=== PATIENT | female | born 1970 | race African-American/Black ===

== ENCOUNTER 2021-07-05 09:39 | Outpatient (REF) | payer OTHER, SELFPAY ==
[2021-07-05 11:24] LABS: COVID-19 Test Negative (Negative)
== END 2021-07-05 09:40 | disposition home or self-care (01) ==
LOC: HO.LAB 09:39
PROVIDERS: PCP Family Medicine; Visit Provider Internal Medicine
DX: Z20.822 Contact with and (suspected) exposure to COVID-19 (principal)
CPT/HCPCS: 36415; 87635; C9803